=== PATIENT | male | born 1965 | race Caucasian/White ===

== ENCOUNTER 2016-06-09 17:24 | Emergency (ER) | payer OTHER, MEDICAID ==
[2016-06-09 17:42] VITALS: RESP 18; TEMP 98.6; O2SAT 97
--- NOTE | 2016-06-09 18:16 | EDPHY ---
H & P Stated Complaint: G tube fell out today Time Seen by Provider: 06/09/16 17:58 HPI/ROS: CHIEF COMPLAINT: G-tube fell out HISTORY OF PRESENT ILLNESS: Patient is a 51-year-old mentally handicapped man from the skilled nursing because he accidentally pulled out his G-tube. Dr. Webster from GI called and asked that we or [facility] replace it. It was originally placed by [facility]. They have been expecting him to follow up tomorrow. Patient has not been vomiting. He has not been febrile. REVIEW OF SYSTEMS: Obtained from caregiver Constitutional: denies: chills, fever, recent illness, recent injury EENTM: Blind Respiratory: denies: cough, shortness of breath Cardiac: denies: chest pain, irregular heart rate, lightheadedness, palpitations Gastrointestinal/Abdominal: See HPI Genitourinary: denies: dysuria, frequency, hematuria, pain Musculoskeletal: Spastic Skin: denies: lesions, rash, jaundice, bruising Neurological: denies: headache, numbness, paresthesia, tingling, dizziness, weakness Hematologic/Lymphatic: denies: blood clots, easy bleeding, easy bruising Immunologic/allergic: denies: HIV/AIDS, transplant EXAM: GENERAL: Wheelchair bound, mentally handicapped HEAD: Atraumatic, normocephalic. EYES: Blind, cataracts, conjunctiva are normal. ENT: oropharynx clear without exudates. Moist mucous membranes. NECK: Limited range of motion at baseline LUNGS: Breath sounds clear to auscultation bilaterally and equal. No wheezes rales or rhonchi. HEART: Regular rate and rhythm without murmurs, rubs or gallops. ABDOMEN: stoma visible, no leaking or bleeding. Soft, nontender, normoactive bowel sounds. No guarding, no rebound. No masses appreciated. BACK: No CVA tenderness, no spinal tenderness, step-offs or deformities EXTREMITIES: spastic quadriplegia NEUROLOGICAL: Not cooperative, moving all extremities spontaneously PSYCH: Unable to assess SKIN: Warm, dry, normal turgor, no visible rashes or lesions. Source: Patient Exam Limitations: No limitations - Personal History Current Tetanus/Diphtheria Vaccine: Yes Current Tetanus Diphtheria and Acellular Pertussis (TDAP): Yes Tetanus Vaccine Date: 12/31/2008 - Medical/Surgical History Hx Asthma: No Hx Chronic Respiratory Disease: No Hx Diabetes: No Hx Cardiac Disease: Yes Hx Renal Disease: No Hx Cirrhosis: No Hx Alcoholism: No Hx HIV/AIDS: No Hx Splenectomy or Spleen Trauma: No Other PMH: non-verbal, blind, aphthous ulcers, gingivitis, colitis, cryptochidism w testosterone deficency, cataracts, dysphagia, dextoscoliosis, CP , seizures, gerd, g-tube, bradycardia w/hyponatremia, hypothyroidism, incontinene, LE edema, profound mental retardation, recurrent skin breaksdwon of gluteal crease, osteoperiosis, spastic quadriplegia, a-fib - Family History Significant Family History: Hypertension - Social History Smoking Status: Never smoked Alcohol Use: Sober Drug Use: None Constitutional: Initial Vital Signs Temperature (C) 37 C 06/09/16 17:39 Heart Rate 66 06/09/16 17:39 Respiratory Rate 18 06/09/16 17:39 Blood Pressure 136/86 H 06/09/16 17:39 O2 Sat (%) 97 06/09/16 17:39 O2 Delivery Mode Room Air Allergies/Adverse Reactions: No Known Allergies Allergy (Verified 03/25/15 07:01) Home Medications: Medication Instructions Recorded Alendronate Sodium [Fosamax 70 MG 70 mg TUBE HANCOCK@05 06/26/14 (*)] Ascorbic Acid [Vitamin C 500 mg 500 mg PO BID 06/26/14 (*)] Atorvastatin Calcium [Lipitor 10 10 mg PO DAILY 06/26/14 mg (*)] Calcium Carb Oral Liquid [Calcium 600 mg TUBE BID 06/26/14 Carb Oral Liquid 500mg/5ml] Ferrous Sulfate [Ferrous Sulf 25 330 mg TUBE DAILY 06/26/14 MG/ML (OTC)] Levothyroxine [Synthroid 125 mcg 125 mcg PO DAILY06 06/26/14 (*)] Magnesium Hydroxide [Milk of 30 ml TUBE DAILY PRN 06/26/14 Magnesia (*)] Nystatin [Mycostatin Cream (RX)] 1 ella TP BID 06/26/14 Nystatin [Nyamyc] 1 ella TP BID PRN 06/26/14 levETIRAcetam [Levetiracetam] 12.5 ml TUBE BID 06/26/14 Herbals/Supplements -Info Only 1 ea PO DAILY 03/25/15 Valproic Acid [Depakene 250mg/5ml 1,000 mg TUBE TID 03/25/15 Oral Liquid (*)] Chlorhexidine Gluconate [Peridex 15 ml PO BID@0900,2100 03/10/16 oral soln (*)] Diltiazem [Cardizem 60 MG (*)] 30 mg TUBE TID 03/10/16 Esomeprazole Magnesium [Nexium] 20 mg TUBE DAILY 03/10/16 Polyethylene Glycol 3350 [Miralax 17 gm TUBE BID PRN 03/10/16 17 gm (*)] Testosterone [ANDROGEL 1% 5gm pkt 5 gm TD DAILY 03/10/16 (*)] Medical Decision Making - Diagnostics Imaging: X-ray: Abdominal x-ray with contrast through the G-tube was obtained. I viewed the images myself on the PACS system. My interpretation of the images is : G-tube in place, no leaking. The radiologist interpretation is Dr. Shaquille Amaro. Procedures: G-tube replaced manually by me. Patient tolerated well. No anesthesia used. X- ray confirms placement. ED Course/Re-evaluation: The G-tube was replaced by me. X-ray confirms placement. Patient tolerated procedure well. We will discharge him to resume feeding. Differential Diagnosis: Partial list of the Differential diagnosis considered include but were not limited to; G-tube displacement, leakage and although unlikely based on the history and physical exam, I also considered peritonitis, sepsis. Departure - Departure Disposition: Home, Routine, Self-Care Clinical Impression: Encounter for gastrojejunal (GJ) tube placement Condition: Fair Instructions: How to Use and Care for Your PEG Tube (ED) Referrals: Gris Condon MD [Primary Care Provider] - As per Instructions
[2016-06-09] MEDS ORDERED: IOPAMIDOL (ISOVUE-300) 150 ML BTL IV ONE (18:55)
[2016-06-09 19:57] VITALS: BP 135/80; PULSE 64
== END 2016-06-09 19:56 | disposition home or self-care (01) ==
DX: Z46.59 Encounter for fitting and adjustment of other gastrointestinal appliance and device (principal)
CPT/HCPCS: 43760; 74000; 99284; Q9967

== ENCOUNTER 2016-06-12 07:13 | Emergency (ER) | payer OTHER, MEDICAID ==
--- NOTE | 2016-06-12 07:24 | EDPHY ---
H & P HPI/ROS: HPI CHIEF COMPLAINT: "My G-tube fell out" HISTORY OF PRESENT ILLNESS: This patient very pleasant 51-year-old male significant past medical history for MR, AFib, wheelchair bound, seizure disorder, chronic contractures, quadriplegia, and has a G-tube for which she gets most of his medications. He was recently here in the emergency room as G- tube fell out. Was placed back in place in the emergency room. This morning the nursing staff is evaluating around 6:00 a.m. and noticed that his G-tube was out. The patient has no complaints he has not been vomiting is no abdominal pain. Afebrile. Per nursing staff he is at his neurological baseline. Past Medical History: Wheelchair bound, quadriplegia, MR, contractures, seizure , left bundle branch block, AFib Past Surgical History: G tube Social History: Lives at a local long term. Family History: Noncontributory ROS REVIEW OF SYSTEMS: A comprehensive 10 point review of systems is otherwise negative aside from elements mentioned in the history of present illness. Exam Constitutional appears well, triage nursing summary reviewed, vital signs reviewed, awake/alert. Nonverbal Eyes normal conjunctivae and sclera, EOMI, PERRLA. HENT normal inspection, atraumatic, moist mucus membranes, no epistaxis, neck supple/ no meningismus, no raccoon eyes. Respiratory clear to auscultation bilaterally, normal breath sounds, no respiratory distress, no wheezing. Cardiovascular rate normal, regular rhythm, no murmur, no edema, distal pulses normal. Gastrointestinal soft, non-tender, no rebound, no guarding, normal bowel sounds, no distension, no pulsatile mass. Genitourinary no CVA tenderness. Musculoskeletal wheelchair bound, contractures. Skin pink, warm, & dry, no rash, skin atraumatic. Neurologic nonverbal at neurological baseline Psychiatric normal mood/affect. Heme/Lymph/Immune no lymphadenopathy. Differential Diagnosis: Includes but is not limited to in a particular order need for G-tube replacement. Medical Decision Making: Plan for this patient is to replace his G-tube with KUB with gastrografin view. Re-evaluation: ED x-ray KUB: 0810: I am in attempt to place a 20 Omani G-tube in this patient's G-tube site however the stoma is extremely swollen and there is bloody discharge from it. I was unable to pass this 20 [place]. I will attempt a smaller caliber. 0822: Was able to pass a 16 O[place]i G-tube. 0843: I remove the 16 [place]i G-tube and placed a 20 [place]. It passed appropriately. Was able to push Gastrografin through this PEG tube the balloon is inflated. The KUB reviewed by myself shows good Gastrografin in the stomach lining. Radiology read is pending at this time. 0903: KUB was read by Radiology G-tube in good position. G-tube flush and is working well. Patient be discharged from the emergency room. Balloon was filled. No complications with G-tube placement. Source: Patient - Personal History Tetanus Vaccine Date: 12/31/2008 - Medical/Surgical History Hx Asthma: No Hx Chronic Respiratory Disease: No Hx Diabetes: No Hx Cardiac Disease: Yes Hx Renal Disease: No Hx Cirrhosis: No Hx Alcoholism: No Hx HIV/AIDS: No Hx Splenectomy or Spleen Trauma: No Other PMH: non-verbal, blind, aphthous ulcers, gingivitis, colitis, cryptochidism w testosterone deficency, cataracts, dysphagia, dextoscoliosis, CP , seizures, gerd, g-tube, bradycardia w/hyponatremia, hypothyroidism, incontinene, LE edema, profound mental retardation, recurrent skin breaksdwon of gluteal crease, osteoperiosis, spastic quadriplegia, a-fib - Social History Smoking Status: Never smoked Constitutional: Initial Vital Signs Temperature (C) 36.2 C 06/12/16 07:15 Heart Rate 78 06/12/16 07:15 Respiratory Rate 18 06/12/16 07:15 Blood Pressure 168/88 H 06/12/16 07:15 O2 Sat (%) 97 06/12/16 07:15 O2 Delivery Mode Room Air Allergies/Adverse Reactions: No Known Allergies Allergy (Verified 06/12/16 07:26) Home Medications: Medication Instructions Recorded Alendronate Sodium [Fosamax 70 MG 70 mg TUBE HANCOCK@05 06/26/14 (*)] Ascorbic Acid [Vitamin C 500 mg 500 mg PO BID 06/26/14 (*)] Atorvastatin Calcium [Lipitor 10 10 mg PO DAILY 06/26/14 mg (*)] Calcium Carb Oral Liquid [Calcium 600 mg TUBE BID 04/07/15 Carb Oral Liquid 500mg/5ml] Ferrous Sulfate [Ferrous Sulf 25 330 mg TUBE DAILY 06/26/14 MG/ML (OTC)] Levothyroxine [Synthroid 125 mcg 125 mcg PO DAILY06 06/26/14 (*)] Magnesium Hydroxide [Milk of 30 ml TUBE DAILY PRN 06/26/14 Magnesia (*)] Nystatin [Mycostatin Cream (RX)] 1 ella TP BID 06/26/14 Nystatin [Nyamyc] 1 ella TP BID PRN 06/26/14 levETIRAcetam [Levetiracetam] 12.5 ml TUBE BID 06/26/14 Herbals/Supplements -Info Only 1 ea PO DAILY 03/25/15 Valproic Acid [Depakene 250mg/5ml 1,000 mg TUBE TID 03/25/15 Oral Liquid (*)] Chlorhexidine Gluconate [Peridex 15 ml PO BID@0900,2100 03/10/16 oral soln (*)] Diltiazem [Cardizem 60 MG (*)] 30 mg TUBE TID 03/10/16 Esomeprazole Magnesium [Nexium] 20 mg TUBE DAILY 03/10/16 Polyethylene Glycol 3350 [Miralax 17 gm TUBE BID PRN 03/10/16 17 gm (*)] Testosterone [ANDROGEL 1% 5gm pkt 5 gm TD DAILY 03/10/16 (*)] Departure - Departure Disposition: Home, Routine, Self-Care Clinical Impression: Gastrostomy tube dysfunction Condition: Good Instructions: How to Use and Care for Your PEG Tube (ED) Referrals: Gris Condon MD [Primary Care Provider] - As per Instructions
[2016-06-12 09:17] VITALS: BP 99/83; PULSE 56; RESP 20; TEMP 97.5; O2SAT 95
== END 2016-06-12 09:17 | disposition home or self-care (01) ==
PROC: 0DH63UZ Insertion of Feeding Device into Stomach, Percutaneous Approach (ICD-10-PCS; principal; 2016-06-12)
DX: K94.23 Gastrostomy malfunction (principal)

== ENCOUNTER 2016-08-13 18:03 | Emergency (ER) | payer OTHER, MEDICAID ==
[2016-08-13 18:36] VITALS: TEMP 97
--- NOTE | 2016-08-13 18:49 | EDPHY ---
H & P Stated Complaint: Blood in urine aprox 1400 today,denies fever Time Seen by Provider: 08/13/16 18:46 HPI/ROS: CHIEF COMPLAINT: Hematuria HISTORY OF PRESENT ILLNESS: This is a nonverbal, mentally disabled, and wheelchair-bound 51-year-old male arriving from [facility] in [place] with wood crew supervisor who presents with acute onset hematuria as visualized on the liner of his adult diaper by correction staff at 1400 and 1600 today. Per wood crew supervisor at bedside, the first episode was of bright red urine; the second was dark brown. There have been no additional apparent concerns. He has not had a fever and has not appeared in pain. Medical history also includes recurrent UTIs. History obtained from wood crew supervisor from correction who is at bedside. REVIEW OF SYSTEMS: Complete ROS is unobtainable secondary to the patient's chronic condition. Source: care home records, Old records, Other (Visual Merchandising Specialist) Exam Limitations: Other - Personal History Tetanus Vaccine Date: 12/31/2008 - Medical/Surgical History PMH: 1. Mentally disabled, non-verbal, wheelchair bound 2. Recurrent UTIs 3. Urinary incontinence 4. Seizure disorder 5. Dysphagia, G-tube in place 6. Cryptorchidism with testosterone deficiency Hx Asthma: No Hx Chronic Respiratory Disease: No Hx Diabetes: No Hx Cardiac Disease: Yes Hx Renal Disease: No Hx Cirrhosis: No Hx Alcoholism: No Hx HIV/AIDS: No Hx Splenectomy or Spleen Trauma: No Other PMH: non-verbal, blind, aphthous ulcers, gingivitis, colitis, cryptochidism w testosterone deficency, cataracts, dysphagia, dextroscoliosis, CP, seizures, gerd, g-tube, bradycardia w/hyponatremia, hypothyroidism, incontinent of urine, LE edema, profound mental retardation, recurrent skin breakdown of gluteal crease, osteoperosis, spastic quadriplegia, a-fib - Social History Smoking Status: Never smoked Alcohol Use: None Additional Social History: Lives in correction in [place]. Visual Merchandising Specialist at bedside. - Physical Exam Exam: General Appearance: Alert. Vital signs reviewed. BP 92/65. Afebrile. Focused exam. ENT, Mouth: Mucous membranes are moist, no oropharyngeal erythema or edema. Neck: No lymphadenopathy. Respiratory: Lungs are clear to auscultation; no wheezes, rales, or rhonchi. Cardiovascular: Regular rate and rhythm; no murmur, rub, or gallop. Gastrointestinal: Abdomen is soft and nontender, G tube in place. Skin: Warm and dry, no rashes on exposed skin, normal color. Skin not fully exposed. Neurologic: Nonverbal. Constitutional: Initial Vital Signs Temperature (C) 36.1 C 08/13/16 18:23 Heart Rate 76 08/13/16 18:23 Respiratory Rate 20 08/13/16 18:23 Blood Pressure 92/65 L 08/13/16 18:23 O2 Sat (%) 95 08/13/16 18:23 O2 Delivery Mode Room Air Allergies/Adverse Reactions: No Known Allergies Allergy (Verified 08/13/16 18:21) Home Medications: Medication Instructions Recorded Alendronate Sodium [Fosamax 70 MG 70 mg TUBE HANCOCK@05 06/26/14 (*)] Ascorbic Acid [Vitamin C 500 mg 500 mg PO BID 06/26/14 (*)] Calcium Carb Oral Liquid [Calcium 600 mg TUBE BID 06/26/14 Carb Oral Liquid 500mg/5ml] Ferrous Sulfate [Ferrous Sulf 25 330 mg TUBE DAILY 06/26/14 MG/ML (OTC)] Levothyroxine [Synthroid 125 mcg 125 mcg PO DAILY06 06/26/14 (*)] Magnesium Hydroxide [Milk of 30 ml TUBE DAILY PRN 06/26/14 Magnesia (*)] Nystatin [Mycostatin Cream (RX)] 1 ella TP BID 06/26/14 Nystatin [Nyamyc] 1 ella TP BID PRN 06/26/14 levETIRAcetam [Levetiracetam] 12.5 ml TUBE BID 06/26/14 Herbals/Supplements -Info Only 1 ea PO DAILY 03/25/15 Valproic Acid [Depakene 250mg/5ml 1,000 mg TUBE TID 03/25/15 Oral Liquid (*)] Chlorhexidine Gluconate [Peridex 15 ml PO BID@0900,2100 03/10/16 oral soln (*)] Diltiazem [Cardizem 60 MG (*)] 30 mg TUBE TID 03/10/16 Esomeprazole Magnesium [Nexium] 20 mg TUBE DAILY 03/10/16 Polyethylene Glycol 3350 [Miralax 17 gm TUBE BID PRN 03/10/16 17 gm (*)] Testosterone [ANDROGEL 1% 5gm pkt 5 gm TD DAILY 03/10/16 (*)] Cephalexin [Keflex] 500 mg PO BID #8 cap 08/13/16 Medical Decision Making ED Course/Re-evaluation: This mentally disabled, wheelchair bound 51-year-old male presents with hematuria as evidenced by red residues on his diaper first noticed by staff at 1200 today. He is nonverbal, but there is no evidence of pain. He is afebrile. No significant findings on exam. He does not appear ill in general or in pain. Will proceed with UA. [place] catheter placed by RN to obtain urine. UA obtained and indicates likely early UTI. Culture sent. He will be started on a course of Keflex and provided with instructions to follow-up with his PCP next week for reevaluation. I discussed return precautions with the patient's wood crew supervisor who expresses understanding of this. He will be discharged home in good condition. Differential Diagnosis: I considered a differential diagnosis that includes but is not limited to pyelonephritis/urinary tract infection, ureterolithiasis, ureteral trauma, malignancy, and bleeding diathesis, - Data Points Microbiology Results: MICROBIOLOGY 08/13/16 20:42 Urine,Catheterized Urine Culture - Preliminary Medications Given: Discontinued Medications Cephalexin (Keflex 500 Mg Prepack#4) 1 btl TAKEHOME EDNOW ONE PRN Reason: Protocol Stop: 08/13/16 20:29 Last Admin: 08/13/16 20:38 Dose: 1 btl Lidocaine (Uroject Lidocaine 2% Jelly) 20 ml UR EDNOW ONE Stop: 08/13/16 19:02 Last Admin: 08/13/16 19:45 Dose: 20 ml Departure - Departure Disposition: Home, Routine, Self-Care Clinical Impression: Urinary tract infection Qualifiers: Urinary tract infection type: acute cystitis Hematuria presence: with hematuria Qualified Code(s): N30.01 - Acute cystitis with hematuria Condition: Good Instructions: Cephalexin (By mouth), Urinary Tract Infection in Men (ED) Additional Instructions: 1. Take 500mg Keflex twice daily for five days. 2. Follow-up with a primary care provider for reevaluation in 3-5 days. 3. Return to the Emergency Department for increased blood in urine, apparent pain, high fever, or other serious concerns. Referrals: Gris Condon MD [Primary Care Provider] - As per Instructions Prescriptions: Cephalexin [Keflex] 500 mg PO BID #8 cap Report Scribed for: Jailyn Triplett Report Scribed by: Vicki Marks Physician Review and Approval Statement: 08/13/16 18:49 Portions of this note were transcribed by the medical secretary receptionist. I, Dr. Jailyn Triplett, personally performed the history, physical exam, and medical decision- making; and confirmed the accuracy of the information in the transcribed note.
[2016-08-13] MEDS ORDERED: LIDOCAINE 2% JELLY 20 ML (UROJECT) UR ONE (19:01)
[2016-08-13 20:05] LABS: COLOR YELLOW; LEUKOCYTE ESTERASE,URINE TRACE (NEGATIVE); NITRITE,URINE NEGATIVE (NEGATIVE); PH,URINE 8.5 (5.0-7.5)
[2016-08-13 20:19] LABS: MUCUS 1+ /lpf (NONE-1+)
[2016-08-13 20:21] LABS: BACTERIA TRACE /hpf (NONE SEEN)
[2016-08-13] MEDS ORDERED: CEPHALEXIN 500MG PREPACK#4 BTL TAKEHOME ONE (20:28)
[2016-08-13 20:53] VITALS: BP 95/63; PULSE 78; RESP 16; O2SAT 94
== END 2016-08-13 20:38 | disposition home or self-care (01) ==
LOC: CED 18:03
PROC: 0T9B70Z Drainage of Bladder with Drainage Device, Via Natural or Artificial Opening (ICD-10-PCS; principal; 2016-08-13)
DX: N30.01 Acute cystitis with hematuria (principal); B96.89 Other specified bacterial agents as the cause of diseases classified elsewhere
CPT/HCPCS: 81003-PO; 81015-PO

== ENCOUNTER → 2017-06-24 | Outpatient (CLI) | payer OTHER, MEDICAID | LOC: CIMAGING 11:30 | PROVIDERS: ATTEND Family Medicine | DX: J40 Bronchitis, not specified as acute or chronic (principal); M95.4 Acquired deformity of chest and rib; J45.909 Unspecified asthma, uncomplicated | CPT/HCPCS: 71046-PO ==

== ENCOUNTER 2017-06-30 15:11 | Emergency (ER) | payer OTHER, MEDICAID ==
--- NOTE | 2017-06-30 15:21 | EDPHY ---
H & P Time Seen by Provider: 06/30/17 15:16 HPI/ROS: CHIEF COMPLAINT: Seizure HISTORY OF PRESENT ILLNESS: The patient is a 52-year-old, developmentally delayed, nonverbal, wheelchair-bound male who presents emergency department after having 2 seizures. The patient has a history of seizures. He had his 1st seizure at 1:30 p.m.. He was given Ativan. His 2nd seizure was at 2:35 pm. He was again given Ativan. The staff that caring for him stated that the seizures were more violent than usual. They called EMS for evaluation. Per report, the patient has had a cold and they have been treating him with over-the -counter DM medicine. EMS stated that he became slightly more responsive EN route. He began opening his eyes. REVIEW OF SYSTEMS: Unable to obtained due the patient's baseline condition Past Medical/Surgical History: Includes mental disability, nonverbal, wheelchair-bound, recurrent UTIs, urinary incontinence, seizure disorder, dysphagia, crit Cardizem, paroxysmal atrial fibrillation, encephalopathy Past surgical history: Includes G-tube placement Social history: The patient is a care facility Smoking Status: Never smoked Physical Exam: Vitals noted GENERAL: Nonverbal. Eyes open. Alert. HEENT: Eyes open. Cataracts bilaterally. Extraocular movement intact. Normal pharynx. Moist mucous membranes, no signs of dehydration. NECK: No thyromegaly, no lymphadenopathy, supple. No spinal step-off or tenderness RESPIRATORY: Decreased breath sounds bilaterally. Clear to auscultation bilaterally, no rales, rhonchi or wheezing. CVS: Regular rate and rhythm, no rubs, murmurs, or gallops. ABDOMEN: Soft, nontender, nondistended, no organomegaly. BACK: Normal to inspection, no CVA tenderness. : Diaper in place SKIN: Normal color, no rash, warm, dry. No pallor. EXTREMITIES: Contracted extremities. No erythema. No warmth. Positive pulses in all extremities. NEURO/PSYCH: Alert. Nonverbal. Constitutional: Initial Vital Signs Temperature (C) 37 C 06/30/17 15:21 Heart Rate 83 06/30/17 15:21 Respiratory Rate 18 06/30/17 15:21 Blood Pressure 112/73 06/30/17 15:21 O2 Sat (%) 94 06/30/17 15:21 O2 Delivery Mode Room Air Allergies/Adverse Reactions: No Known Allergies Allergy (Verified 08/13/16 18:21) Home Medications: Medication Instructions Recorded Alendronate Sodium [Fosamax 70 MG 70 mg TUBE HANCOCK@05 06/26/14 (*)] Ascorbic Acid [Vitamin C 500 mg 500 mg PO BID 06/26/14 (*)] Calcium Carb Oral Liquid [Calcium 600 mg TUBE BID 06/26/14 Carb Oral Liquid 500mg/5ml] Ferrous Sulfate [Ferrous Sulf 25 330 mg TUBE DAILY 06/26/14 MG/ML (OTC)] Levothyroxine [Synthroid 125 mcg 125 mcg PO DAILY06 06/26/14 (*)] Magnesium Hydroxide [Milk of 30 ml TUBE DAILY PRN 06/26/14 Magnesia (*)] Nystatin [Mycostatin Cream (RX)] 1 ella TP BID 06/26/14 Nystatin [Nyamyc] 1 ella TP BID PRN 06/26/14 levETIRAcetam [Levetiracetam] 12.5 ml TUBE BID 06/26/14 Herbals/Supplements -Info Only 1 ea PO DAILY 03/25/15 Valproic Acid [Depakene 250mg/5ml 1,000 mg TUBE TID 03/25/15 Oral Liquid (*)] Chlorhexidine Gluconate [Peridex 15 ml PO BID@0900,2100 03/10/16 oral soln (*)] Diltiazem [Cardizem 60 MG (*)] 30 mg TUBE TID 03/10/16 Esomeprazole Magnesium [Nexium] 20 mg TUBE DAILY 03/10/16 Polyethylene Glycol 3350 [Miralax 17 gm TUBE BID PRN 03/10/16 17 gm (*)] Testosterone [ANDROGEL 1% 5gm pkt 5 gm TD DAILY 03/10/16 (*)] Cephalexin [Keflex] 500 mg PO BID #8 cap 08/13/16 Medical Decision Making - Diagnostics Imaging Results: Imaging Impressions Head CT 06/30/17 15:33 Impression: 1. Severe cerebral and cerebellar atrophy. 2. No skull fracture. 3. No epidural or subdural hematoma. Findings and recommendations discussed with Emergency Department physician, Mildred Yang at 1611 hour, 06/30/2017. Final report concurs with initial preliminary interpretation. ED Course/Re-evaluation: I met EMS on arrival. I took report from the baseball inspector. I reviewed the patient 's record sent with him from the care facility. Patient is nonverbal and unable to give any history. Because of this laboratory studies and head CT were ordered. I reviewed the patient's laboratory studies. The patient's sodium was low. However I compared this with previous values and is consistent. Chemistry panel is otherwise unremarkable. CBC was unremarkable. Head CT: Please refer the dictated report by by Dr. Goodwin. No acute disease noted. I rechecked the patient on numerous occasions while here. He had no further seizure activity. He seemed to be his baseline. The patient's care provider arrive. I reviewed the history with care provider. I discussed the results. She feels comfortable with having the patient discharged. She is given warnings prior to leaving. Patient's care facility was contacted. Differential Diagnosis: My differential includes but is not limited to seizure disorder, postictal state , subarachnoid hemorrhage, subdural hematoma, epidural hematoma, mass, malignancy, electrolyte abnormality, sugar abnormality, dehydration, viral illness, sepsis, bacteremia - Data Points Laboratory Results: Laboratory Results 06/30/17 15:38 06/30/17 15:20 06/30/17 06/30/17 15:38 15:20 WBC 8.62 10^3/uL 10^3/uL (3.80-9.50) RBC 4.50 10^6/uL 10^6/uL (4.40-6.38) Hgb 15.7 g/dL g/dL (13.7-17.5) Hct 45.7 % % (40.0-51.0) MCV 101.6 fL H fL (81.5-99.8) MCH 34.9 pg H pg (27.9-34.1) MCHC 34.4 g/dL g/dL (32.4-36.7) RDW 13.9 % % (11.5-15.2) Plt Count 190 10^3/uL 10^3/uL (150-400) MPV 9.9 fL fL (8.7-11.7) Neut % (Auto) 52.1 % % (39.3-74.2) Lymph % (Auto) 33.9 % % (15.0-45.0) [place] % (Auto) 12.6 % % (4.5-13.0) Eos % (Auto) 0.2 % L % (0.6-7.6) Baso % (Auto) 0.2 % L % (0.3-1.7) Nucleat RBC Rel Count 0.0 % % (0.0-0.2) Absolute Neuts (auto) 4.48 10^3/uL 10^3/uL (1.70-6.50) Absolute Lymphs (auto) 2.92 10^3/uL 10^3/uL (1.00-3.00) Absolute Monos (auto) 1.09 10^3/uL H 10^3/uL (0.30-0.80) Absolute Eos (auto) 0.02 10^3/uL L 10^3/uL (0.03-0.40) Absolute Basos (auto) 0.02 10^3/uL 10^3/uL (0.02-0.10) Absolute Nucleated RBC 0.00 10^3/uL 10^3/uL (0-0.01) Immature Gran % 1.0 % % (0.0-1.1) Immature Gran # 0.09 10^3/uL 10^3/uL (0.00-0.10) Sodium 131 mEq/L L mEq/L (135-145) Potassium 4.5 mEq/L mEq/L (3.5-5.2) Chloride 94 mEq/L L mEq/L (97-110) Carbon Dioxide 22 mEq/l mEq/l (22-31) Anion Gap 15 mEq/L mEq/L (8-16) BUN 14 mg/dL mg/dL (7-23) Creatinine 0.4 mg/dL L mg/dL (0.7-1.3) Estimated GFR > 60 Glucose 130 mg/dL H mg/dL (70-100) Calcium 9.5 mg/dL mg/dL (8.5-10.4) Departure - Departure Disposition: Home, Routine, Self-Care Clinical Impression: Seizure disorder Condition: Good Instructions: Epilepsy (ED) Additional Instructions: Return with repeated seizures, fever, abnormal behavior or any other concerns. Referrals: Patient,NotPresent [Unknown] - As per Instructions
--- NOTE | 2017-06-30 15:24 | CPEKG ---
Heart Rate: 77 RR Interval: 779 P-R Interval: 156 QRSD Interval: 104 QT Interval: 408 QTC Interval: 462 P [place]: 48 QRS [place]: -46 T Wave [place]: 2 EKG Severity - ABNORMAL ECG - EKG Impression: SINUS RHYTHM EKG Impression: MULTIPLE ATRIAL PREMATURE COMPLEXES EKG Impression: INCOMPLETE RBBB AND LAFB EKG Impression: PROBABLE RIGHT VENTRICULAR HYPERTROPHY Electronically Signed By: Mildred Yang 30-Jun-2017 22:10:09
[2017-06-30 15:43] LABS: PLATELET COUNT 190 10^3/uL (150-400)
[2017-06-30 17:14] VITALS: BP 123/78
== END 2017-06-30 17:38 | disposition home or self-care (01) ==
LOC: EDUNIT#
DX: G40.909 Epilepsy, unspecified, not intractable, without status epilepticus (principal)

== ENCOUNTER 2017-10-17 13:36 | Emergency (ER) | payer OTHER, MEDICAID ==
--- NOTE | 2017-10-17 14:20 | EDPHY ---
General - History Smoking Status: Never smoked Time Seen by Provider: 10/17/17 14:13 Narrative: CHIEF COMPLAINT: Possible infection of the left arm HISTORY OF PRESENT ILLNESS: Patient presents with branch manager provides all the history as he is a nonverbal patient. She reports a wound to the left side of the upper arm that has been present since Wednesday. The patient lives in a half-way and attends a day program. When he came open per normal Wednesday, they noticed the area of redness on the left part of the upper arm. There was no reported injury to them. Unable to obtain any details from the patient as he does not communicate verbally or physically. They stated they are concerned for the possibility of infection. No other associated complaints or modifying factors obtainable from the patient. REVIEW OF SYSTEMS: Ten systems reviewed and are negative unless otherwise noted in the HPI PCP: Dr. Gris Condon SPECIALISTS: Laundry Route Driver does not recall PAST MEDICAL HISTORY: Spastic quadriplegia. Multiple comorbidities report reviewed as documented on his triage assessment. No anticoagulant use. SOCIAL HISTORY: Lives in a half-way. FAMILY HISTORY: Noncontributory EXAMINATION General Appearance: Alert, no distress. Presents in a wheelchair. Head: normocephalic, atraumatic. No outward signs of trauma. Cardiovascular: Regular rate with symmetric radial pulses and good signs of perfusion to the left hand and upper extremity. 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 Skin: Warm and dry. There is a 4 cm vertical area of hematoma/blood blister formation on the left lateral brachium. No puncture. There is mild surrounding abrasion. No cellulitis or warmth appreciated. Extremities: Baseline contractures. Unable to test range of motion of this patient. There is no edematous or signs of trauma to the left upper extremity. No evidence of DVT. DIFFERENTIAL DIAGNOSES: Including but not limited to hematoma, bulla, traumatic blister, fracture blister, staph infection, MRSA infection MDM: 2:15 p.m. Hematoma/blood blister to the left lateral brachium without any signs of trauma otherwise. There is some surrounding abrasion that is localized. There is no circumferential erythema or edema. I have ordered x-ray of the humerus as we cannot ascertain if there was trauma or not. Suspect this is a hematoma or blood blister that will need evacuation and empiric antibiotics. 3:15 p.m. X-rays negative for any acute findings and technically limited study. 3:45 p.m. I have de roof the blisters and irrigated with bacitracin and apply bacitracin to the wound. An Allevyn dressing will be placed in a be discharged with replacement dressings. Wound care discussed with the patient's branch manager. Re- evaluation in 48 hr. ED precautions discussed. Keflex per G-tube 4 times daily. Discharged home stable condition. SUPERVISION: This patient was independently evaluated without direct involvement of or examination by the attending physician. (Yonatan Urbano) Medical Decision Making: I did not see this patient while he was in the emergency department. However his care was discussed with the PA while the patient was in the department. I agree with treatment plan and management (Biju Samuels) - Diagnostics Imaging Results: Imaging Impressions Humerus X-Ray 10/17/17 14:20 Impression: Limited normal view of the left humerus. - Objective Vital Signs: Initial Vital Signs Temperature (C) 36.9 C 10/17/17 13:38 Heart Rate 50 L 10/17/17 13:38 Respiratory Rate 22 H 10/17/17 13:38 Blood Pressure 94/52 L 10/17/17 13:38 O2 Sat (%) 94 10/17/17 13:38 O2 Delivery Mode Room Air Allergies/Adverse Reactions: No Known Allergies Allergy (Verified 10/17/17 13:44) Home Medications: Medication Instructions Recorded Alendronate Sodium [Fosamax 70 MG 70 mg TUBE HANCOCK@05 06/26/14 (*)] Ascorbic Acid [Vitamin C 500 mg 500 mg PO BID 06/26/14 (*)] Calcium Carb Oral Liquid [Calcium 600 mg TUBE BID 06/26/14 Carb Oral Liquid 500mg/5ml] Ferrous Sulfate [Ferrous Sulf 25 330 mg TUBE DAILY 06/26/14 MG/ML (OTC)] Levothyroxine [Synthroid 125 mcg 125 mcg PO DAILY06 06/26/14 (*)] Magnesium Hydroxide [Milk of 30 ml TUBE DAILY PRN 06/26/14 Magnesia (*)] Nystatin [Mycostatin Cream (RX)] 1 ella TP BID 06/26/14 Nystatin [Nyamyc] 1 ella TP BID PRN 06/26/14 levETIRAcetam [Levetiracetam] 12.5 ml TUBE BID 06/26/14 Herbals/Supplements -Info Only 1 ea PO DAILY 03/25/15 Valproic Acid [Depakene 250mg/5ml 1,000 mg TUBE TID 03/25/15 Oral Liquid (*)] Chlorhexidine Gluconate [Peridex 15 ml PO BID@0900,2100 03/10/16 oral soln (*)] Diltiazem [Cardizem 60 MG (*)] 30 mg TUBE TID 03/10/16 Esomeprazole Magnesium [Nexium] 20 mg TUBE DAILY 03/10/16 Polyethylene Glycol 3350 [Miralax 17 gm TUBE BID PRN 03/10/16 17 gm (*)] Testosterone [ANDROGEL 1% 5gm pkt 5 gm TD DAILY 03/10/16 (*)] Cephalexin [Keflex] 500 mg PO BID #8 cap 08/13/16 Cephalexin [Cephalexin Oral Liquid] 10 ml TUBE QID 7 Days #150 ml 10/17/17 Medications Given: Discontinued Medications Cephalexin (Keflex 250mg/5ml Prepack) 1 btl TAKEHOME EDNOW ONE PRN Reason: Protocol Stop: 10/17/17 16:07 Last Admin: 10/17/17 16:08 Dose: 1 btl Bacitracin 50,000 units/ (Sodium Chloride) 50 mls @ 0 mls/hr IRR ONCE ONE PRN Reason: As Directed Stop: 10/17/17 15:31 Last Admin: 10/17/17 15:52 Dose: 50 mls Departure - Departure Disposition: Home, Routine, Self-Care Clinical Impression: Blister, Abrasion Condition: Good Instructions: Cephalexin (By mouth), Abrasion (ED), Blister (ED) Additional Instructions: 1. Bacitracin to the left humerus abrasion twice daily for 7-10 days 2. Keflex 500mg by g-tube 4 times daily for 7-10 days 3. Recommend wound re-evaluation in 48-72 hours 3. ED precautions for worsening erythema, fever or signs of illness Referrals: Gris Condon MD [Primary Care Provider] - As per Instructions Prescriptions: Cephalexin [Cephalexin Oral Liquid] 10 ml TUBE QID 7 Days #150 ml
[2017-10-17] MEDS ORDERED: BACITRACIN 50,000 UNITS/10 ML SYR IRR ONE (15:03)
[2017-10-17] MEDS ORDERED: NS IRR ONE (15:30)
[2017-10-17] MEDS ORDERED: BACITRACIN IRR ONE (15:30)
[2017-10-17] MEDS ORDERED: CEPHALEXIN 250MG/5ML PREPACK BTL TAKEHOME ONE (16:06)
[2017-10-17 16:17] VITALS: BP 110/70
== END 2017-10-17 16:16 | disposition home or self-care (01) ==
DX: S40.822A Blister (nonthermal) of left upper arm, initial encounter (principal); X58.XXXA Exposure to other specified factors, initial encounter

== ENCOUNTER 2018-02-17 12:43 | Emergency (ER) | payer OTHER, MEDICAID ==
--- NOTE | 2018-02-17 13:18 | EDPHY ---
H & P Stated Complaint: low oxygen Time Seen by Provider: 02/17/18 13:17 HPI/ROS: CHIEF COMPLAINT: Possible hypoxemia HISTORY OF PRESENT ILLNESS: The patient is referred to the ED for possible hypoxemia. He has a history of severe developmental delay. They checked his oxygen level at the care facility he lives at and reportedly was 50%. They placed the patient on oxygen and per doctor's orders brought the patient to the emergency department. Caregivers report no history of fever, tachypnea or cough. The patient is exclusively G-tube fed. He is not had vomiting or diarrhea. REVIEW OF SYSTEMS: A comprehensive 10 point review of systems is otherwise negative aside from elements mentioned in the history of present illness. Source: Patient, Other Exam Limitations: Clinical condition - Personal History Tetanus Vaccine Date: 12/31/2008 - Medical/Surgical History Hx Asthma: No Hx Chronic Respiratory Disease: No Hx Diabetes: No Hx Cardiac Disease: Yes Hx Renal Disease: No Hx Cirrhosis: No Hx Alcoholism: No Hx HIV/AIDS: No Hx Splenectomy or Spleen Trauma: No Other PMH: non-verbal, blind, aphthous ulcers, gingivitis, colitis, cryptochidism w testosterone deficency, cataracts, dysphagia, dextroscoliosis, CP, seizures, gerd, g-tube, bradycardia w/hyponatremia, hypothyroidism, incontinent of urine, LE edema, profound mental retardation, recurrent skin breakdown of gluteal crease, osteoperosis, spastic quadriplegia, a-fib - Social History Smoking Status: Never smoked - Physical Exam Exam: General Appearance: Obese male, developmentally delayed, in wheelchair Eyes: Pupils equal and round no pallor or injection ENT, Mouth: Dry mucous membranes Respiratory: There are no retractions, lungs are clear to auscultation Cardiovascular: Regular rate and rhythm Gastrointestinal: G-tube in place, abdomen is soft and nontender Neurological: Flexion contractures secondary to underlying developmental delay , moves all 4 extremities grossly Skin: Warm and dry, no rashes, no erythema Musculoskeletal: Neck is supple nontender Extremities: symmetrical, full range of motion Constitutional: Initial Vital Signs Temperature (C) 36.1 C 02/17/18 12:54 Heart Rate 49 L 02/17/18 12:54 Respiratory Rate 18 02/17/18 12:54 O2 Sat (%) 93 02/17/18 12:54 O2 Delivery Mode Room Air Allergies/Adverse Reactions: No Known Allergies Allergy (Verified 02/17/18 12:53) Home Medications: Medication Instructions Recorded Alendronate Sodium [Fosamax 70 MG 70 mg TUBE HANCOCK@05 06/26/14 (*)] Ascorbic Acid [Vitamin C 500 mg 500 mg PO BID 06/26/14 (*)] Calcium Carb Oral Liquid [Calcium 600 mg TUBE BID 06/26/14 Carb Oral Liquid 500mg/5ml] Ferrous Sulfate [Ferrous Sulf 25 330 mg TUBE DAILY 06/26/14 MG/ML (OTC)] Levothyroxine [Synthroid 125 mcg 125 mcg PO DAILY06 06/26/14 (*)] Magnesium Hydroxide [Milk of 30 ml TUBE DAILY PRN 06/26/14 Magnesia (*)] Nystatin [Mycostatin Cream (RX)] 1 ella TP BID 06/26/14 Nystatin [Nyamyc] 1 ella TP BID PRN 06/26/14 levETIRAcetam [Levetiracetam] 12.5 ml TUBE BID 06/26/14 Herbals/Supplements -Info Only 1 ea PO DAILY 03/25/15 Valproic Acid [Depakene 250mg/5ml 1,000 mg TUBE TID 03/25/15 Oral Liquid (*)] Chlorhexidine Gluconate [Peridex 15 ml PO BID@0900,2100 03/10/16 oral soln (*)] Diltiazem [Cardizem 60 MG (*)] 30 mg TUBE TID 03/10/16 Esomeprazole Magnesium [Nexium] 20 mg TUBE DAILY 03/10/16 Polyethylene Glycol 3350 [Miralax 17 gm TUBE BID PRN 03/10/16 17 gm (*)] Testosterone [ANDROGEL 1% 5gm pkt 5 gm TD DAILY 03/10/16 (*)] Cephalexin [Keflex] 500 mg PO BID #8 cap 08/13/16 Cephalexin [Cephalexin Oral Liquid] 10 ml TUBE QID 7 Days #150 ml 10/17/17 Medical Decision Making ED Course/Re-evaluation: The patient is well-appearing with no clinical evidence of pneumonia. His oxygen saturation is 94% on room air. He is afebrile with a normal blood pressure and heart rate. At this point time I do not feel that further workup is indicated as the patient is asymptomatic with a normal oxygen level noted in the ED. Caregivers are comfortable discharging from the emergency department with instructions to return to the ED for any respiratory distress, markedly worsening symptoms or other concerns. Departure - Departure Disposition: Home, Routine, Self-Care Clinical Impression: Cognitive developmental delay Condition: Good Instructions: How to Use and Care for Your PEG Tube (ED) Additional Instructions: 1. Please follow-up with your primary care provider as scheduled. 2. Return to the ED for any worsening respiratory symptoms, abnormal vital signs or other concerns. Referrals: Gris Condon MD [Primary Care Provider] - As per Instructions
== END 2018-02-17 13:47 | disposition home or self-care (01) ==
DX: R09.02 Hypoxemia (principal); E03.9 Hypothyroidism, unspecified; I48.91 Unspecified atrial fibrillation; Z93.1 Gastrostomy status